=== PATIENT | female | born 1965 | race Caucasian/White ===

== ENCOUNTER 2023-01-13 07:39 | Outpatient (CLI) | payer BC | END 2023-01-13 07:40 | disposition home or self-care (01) | LOC: ULT 07:39 | PROVIDERS: ATTEND Specialist | DX: R10.9 Unspecified abdominal pain (principal); K76.0 Fatty (change of) liver, not elsewhere classified; N28.1 Cyst of kidney, acquired | CPT/HCPCS: 76700 ==

== ENCOUNTER 2023-02-20 12:57 | Outpatient (CLI) | payer BC | END 2023-02-20 12:58 | disposition home or self-care (01) | LOC: NM 12:57 | PROVIDERS: ATTEND Specialist | DX: K80.10 Calculus of gallbladder with chronic cholecystitis without obstruction (principal) | CPT/HCPCS: 78227; A9537 ==

== ENCOUNTER 2023-04-21 10:24 | Outpatient (CLI) | payer BC ==
[2023-04-21 14:21] LABS: %Lymphocytes 14.8 % (18.0-47.0); %Monocytes 5.5 % (0.0-10.0); %Neutrophils 76.5 % (40.0-75.0); Hematocrit 45.7 % (34.9-44.5); Hemoglobin 14.7 g/dL (12.0-15.5); Mean Corpuscular HGB CONC 32.2 g/dL (32.0-36.0); Mean Corpuscular Hemoglobin 30.9 pg (27.0-33.0); Mean Corpuscular Volume 96.2 fl (81.6-98.3); Platelet Count 351 10x3/uL (130-400); RBC Distribution Width 15.4 % (11.5-14.5); Red Blood Cell (RBC) Count 4.75 10x6/uL (3.90-5.03); White Blood Cell (WBC) Count 10.6 10x3/uL (3.5-10.5)
[2023-04-21 14:22] LABS: #Basophils 0.1 10x3/uL (0.0-0.2); #Eosinphils 0.2 10x3/uL (0.0-0.5); #Monocytes 0.6 10x3/uL (0.0-1.1); #Neutrophils 8.1 10x3/uL (1.5-8.4); %Basophils 0.9 % (0.0-2.0)
[2023-04-21 18:02] LABS: ALT (SGPT) 7 U/L (8-55); AST (SGOT) 20 U/L (5-34); Albumin 3.7 g/dL (3.5-5.0); Alkaline Phosphatase 117 U/L (40-110); Anion Gap 20 mmol/L (10-20); BUN (Urea Nitrogen) 8 mg/dL (9.8-20.1); Bilirubin, Direct 0.1 mg/dL (0.1-0.3); Bilirubin, Total 0.3 mg/dL (0.2-1.2); Calc. Creatinine Clearance 0 mL/min (70-130); Calcium 9.3 mg/dL (7.8-10.44); Carbon Dioxide 21 mmol/L (22-29); Chloride 104 mmol/L (98-107); Estimated GFR 71; Globulin 2.9 g/dL (2.4-3.5); Glucose 94 mg/dL (70-105); Potassium 3.5 mmol/L (3.5-5.1); Protein, Total 6.6 g/dL (6.0-8.3); Sodium 141 mmol/L (136-145)
== END 2023-04-21 10:25 | disposition home or self-care (01) ==
LOC: LABBT 10:24
PROVIDERS: ATTEND Surgery
DX: Z01.818 Encounter for other preprocedural examination (principal); K81.1 Chronic cholecystitis
CPT/HCPCS: 80053; 80076; 85025; 93005; 93010

== ENCOUNTER 2023-04-29 06:54 | Day surgery (SDC) | payer BC ==
[2023-04-21 11:00] VITALS: BMI 26.6
[2023-04-29] MEDS ORDERED: Midazolam HCl 2 mg/2 ml Vial ONE (08:34)
[2023-04-29] MEDS ORDERED: fentaNYL 50 mcg/mL 1 mL Vial ONE ×3 (09:31→12:18)
[2023-04-29] MEDS ORDERED: EPINEPHrine 1 MG/ML AMP ONE (09:36)
[2023-04-29] MEDS ORDERED: Indocyanine Green 25 MG/10 ML VIAL ONE (09:36)
[2023-04-29] MEDS ORDERED: Bupivacaine 0.25% HCL 30 ML VIAL ONE (09:36)
[2023-04-29] MEDS ORDERED: Sodium Chloride 0.9% 100 ML ONE (09:43)
[2023-04-29] MEDS ORDERED: cefOXitin 2 GM VIAL ONE (09:43)
[2023-04-29] MEDS ORDERED: Rocuronium Bromide 10 MG/ML (10ML VIAL) ONE (09:54)
[2023-04-29] MEDS ORDERED: Ondansetron PF 4 MG/2 ML Vial ONE (09:54)
[2023-04-29] MEDS ORDERED: Dexamethasone 20 MG/5 ML VIAL ONE (09:54)
[2023-04-29] MEDS ORDERED: PROPOFOL 200 MG/20 ML VIAL ONE (09:54)
[2023-04-29] MEDS ORDERED: Lidocaine 1% PF 5 ML VIAL ONE (09:54)
[2023-04-29] MEDS ORDERED: Ipratropium/Albuterol 3 ML NEB ONE (15:14)
[2023-04-29] MEDS ORDERED: HYDROcodone/Acetaminophen 5/325 mg Tablet ONE (16:12)
== END 2023-04-29 16:17 | disposition home or self-care (01) ==
LOC: SDC 06:54
PROVIDERS: ATTEND Surgery
PROC: 0FT44ZZ Resection of Gallbladder, Percutaneous Endoscopic Approach (ICD-10-PCS; principal; 2023-04-29)
DX: K81.1 Chronic cholecystitis (principal); I10 Essential (primary) hypertension; G43.909 Migraine, unspecified, not intractable, without status migrainosus; K22.70 Barrett's esophagus without dysplasia; F32.A Depression, unspecified; J44.9 Chronic obstructive pulmonary disease, unspecified; Z90.710 Acquired absence of both cervix and uterus; F17.210 Nicotine dependence, cigarettes, uncomplicated; Z88.1 Allergy status to other antibiotic agents; Z88.5 Allergy status to narcotic agent; Z91.09 Other allergy status, other than to drugs and biological substances; Z79.899 Other long term (current) drug therapy
CPT/HCPCS: 36416; 88304; J0171; J0694; J1100; J2250; J2405; J2704; J3010; J3490; J7620; S0020

== ENCOUNTER 2023-06-17 14:55 | Inpatient (IN) | payer BC ==
[2023-06-17] MEDS ORDERED: Midazolam HCl 2 mg/2 ml Vial ONE ×2 (15:34→17:03)
[2023-06-17] MEDS ORDERED: Famotidine/PF 20 mg/2ml Vial ONE (15:34)
[2023-06-17] MEDS ORDERED: Pantoprazole 40 MG VIAL ONE (15:34)
[2023-06-17 15:44] LABS: #Monocytes 0.2 thou/uL (0.11-0.59); #Neutrophils 4.5 thou/uL (1.40-6.50); %Basophils 0.4 % (0.0-1.0); %Lymphocytes 12.1 % (21.0-51.0); %Monocytes 4.1 % (0.0-10.0); %Neutrophils 82.8 % (42.0-75.0); Hematocrit 48.3 % (36.0-47.0); Hemoglobin 16.3 g/dL (12.0-16.0); Mean Corpuscular HGB CONC 33.7 g/dL (32.0-36.0); Mean Corpuscular Hemoglobin 31.2 pg (27.0-31.0); Mean Corpuscular Volume 92.5 fl (78.0-98.0); Mean Platelet Volume 10.4 fL (7.4-10.4); Platelet Count 237 10x3/uL (130-400); RBC Distribution Width 15.6 % (11.5-14.5); Red Blood Cell (RBC) Count 5.22 mill/uL (4.20-5.40); White Blood Cell (WBC) Count 5.4 10x3/uL (4.8-10.8)
[2023-06-17 16:04] LABS: ALT (SGPT) 21 U/L (8-55); AST (SGOT) 21 U/L (5-34); Albumin 4.3 g/dL (3.5-5.0); Alkaline Phosphatase 113 U/L (40-110); Anion Gap 16 mmol/L (10-20); BUN (Urea Nitrogen) 6 mg/dL (9.8-20.1); Bilirubin, Total 0.5 mg/dL (0.2-1.2); Calc. Creatinine Clearance 0 mL/min (70-130); Calcium 9.6 mg/dL (7.8-10.44); Carbon Dioxide 19 mmol/L (22-29); Chloride 106 mmol/L (98-107); Estimated GFR 76; Glucose 113 mg/dL (70-105); Magnesium 1.8 mg/dL (1.6-2.6); Protein, Total 7.3 g/dL (6.0-8.3); Sodium 138 mmol/L (136-145)
[2023-06-17 16:08] LABS: Troponin I Less than 0.010 ng/mL (< 0.028)
[2023-06-17] MEDS ORDERED: Magnesium 2 GM/50 ML BAG (IN WATER) ONE (16:50)
[2023-06-17 18:40] LABS: Bilirubin Negative (Negative); Blood, Urine Negative (Negative); CAUTI Indications for Culture Dysuria,urgency,freq; Clarity Clear (Clear); Glucose, Urine (Dipstick) 30 mg/dL (Negative); Ketone, Urine 10 mg/dL (Negative); Leukocyte Negative Leu/uL (Negative); Nitrite Negative (Negative); Protein, Urine (Dipstick) 20 mg/dL (Neg-Trace); RBC/HPF 0-3 HPF (0-3); Specific Gravity, Urine 1.013 (1.002-1.036); Squamous Epithelial 0-3 HPF (0-3); Urobilinogen Normal mg/dL (Less than 2); WBC/HPF 0-3 HPF (0-3); pH, Urine 7.5 (5.0-9.0)
[2023-06-17 18:42] LABS: Bacteria/HPF 1+ HPF (None Seen); Urine Culture Reflex No No
[2023-06-17 19:11] LABS: SARS-CoV-2 NAA Rapid Test Not Detected (NotDetected)
[2023-06-17 19:40] LABS: Lactic Acid 2.6 mmol/L (0.5-2.2)
[2023-06-17] MEDS: Metoclopramide HCl 10 MG/2 ML VIAL IVP SCH (20:23)
[2023-06-17] MEDS: Ondansetron PF 4 MG/2 ML Vial IVP SCH (20:23)
[2023-06-17] MEDS: Famotidine/PF 20 mg/2ml Vial SLOW IVP SCH (20:23)
[2023-06-17] MEDS: Lorazepam 2 MG/ML VIAL SLOW IVP SCH ×2 (20:24→23:23)
[2023-06-17] MEDS: rOPINIRole HCl 1 MG TAB PO SCH (20:25)
[2023-06-17] MEDS: Potassium Chloride 20 MEQ in Premix 1 BAG IVPB SCH (20:41)
[2023-06-17] MEDS: Sodium Chloride 0.9% 1,000 ML IV SCH (20:53)
[2023-06-17] MEDS: Acetaminophen 650 MG Suppository PR PRN (22:24)
[2023-06-17 22:25] VITALS: BMI 24.3
[2023-06-17] MEDS ORDERED: Labetalol HCl 100 MG/20 ML VIAL SLOW IVP SCH (23:00)
[2023-06-17] MEDS ORDERED: rOPINIRole HCl 1 MG TAB PO SCH (23:00)
[2023-06-17] MEDS: Labetalol HCl 100 MG/20 ML VIAL SLOW IVP PRN (23:13)
[2023-06-18] MEDS: Labetalol HCl 100 MG/20 ML VIAL SLOW IVP PRN (00:08)
[2023-06-18] MEDS: Metoclopramide HCl 10 MG/2 ML VIAL IVP SCH ×4 (00:08→20:20)
[2023-06-18] MEDS: Ondansetron PF 4 MG/2 ML Vial IVP SCH ×6 (00:10→20:30)
[2023-06-18] MEDS: Sodium Chloride 0.9% 1,000 ML IV SCH ×5 (00:20→20:15)
[2023-06-18] MEDS: Lorazepam 2 MG/ML VIAL SLOW IVP SCH ×6 (02:16→23:08)
[2023-06-18] MEDS: Potassium Chloride 20 MEQ in Premix 1 BAG IVPB SCH ×3 (03:00→20:20)
[2023-06-18] MEDS: Acetaminophen 650 MG Suppository PR PRN (06:48)
[2023-06-18 06:57] LABS: #Basophils 0.1 thou/uL (0.0-0.2); #Monocytes 0.9 thou/uL (0.11-0.59); #Neutrophils 7.2 thou/uL (1.40-6.50); %Basophils 0.5 % (0.0-1.0); %Eosinophils 0.2 % (0.0-10.0); %Lymphocytes 16.3 % (21.0-51.0); %Neutrophils 73.6 % (42.0-75.0); Hematocrit 44.9 % (36.0-47.0); Hemoglobin 14.9 g/dL (12.0-16.0); Mean Corpuscular HGB CONC 33.2 g/dL (32.0-36.0); Mean Corpuscular Volume 93.5 fl (78.0-98.0); Mean Platelet Volume 10.3 fL (7.4-10.4); Platelet Count 231 10x3/uL (130-400); RBC Distribution Width 16.1 % (11.5-14.5); White Blood Cell (WBC) Count 9.7 10x3/uL (4.8-10.8)
[2023-06-18 07:19] LABS: Anion Gap 14 mmol/L (10-20); BUN (Urea Nitrogen) Less than 4 mg/dL (9.8-20.1); Calc. Creatinine Clearance 99 mL/min (70-130); Calcium 9.4 mg/dL (7.8-10.44); Carbon Dioxide 18 mmol/L (22-29); Chloride 109 mmol/L (98-107); Estimated GFR 101; Glucose 101 mg/dL (70-105); Potassium 3.2 mmol/L (3.5-5.1); Sodium 138 mmol/L (136-145)
[2023-06-18] MEDS ORDERED: predniSONE 50 MG TAB PO SCH (07:30)
[2023-06-18] MEDS ORDERED: cloNIDine 0.1 MG TAB PO PRN (08:09)
[2023-06-18] MEDS: Famotidine/PF 20 mg/2ml Vial SLOW IVP SCH ×2 (09:05→20:15)
[2023-06-18] MEDS: rOPINIRole HCl 1 MG TAB PO SCH ×3 (09:06→20:20)
[2023-06-18] MEDS: Amlodipine 5 MG TAB PO SCH (09:07)
[2023-06-18] MEDS ORDERED: Fentanyl 100 MCG/2 ML VIAL SLOW IVP PRN (10:56)
[2023-06-18] MEDS: fentaNYL 50 mcg/mL 1 mL Vial SLOW IVP PRN ×4 (11:27→23:17)
[2023-06-18] MEDS ORDERED: FLU VACC QS2023-24(6MOS UP)/PF 60 MCG/0.5 ML SYRINGE IM ONE (12:00)
[2023-06-18] MEDS: Nicotine 21 MG PATCH TD SCH (14:18)
[2023-06-18] MEDS: predniSONE 50 MG TAB PO SCH ×2 (14:25→18:43)
[2023-06-18] MEDS ORDERED: diphenhydrAMINE 50 MG CAP PO SCH (18:00)
[2023-06-19] MEDS: Ondansetron PF 4 MG/2 ML Vial IVP SCH ×6 (00:49→21:19)
[2023-06-19] MEDS: Metoclopramide HCl 10 MG/2 ML VIAL IVP SCH ×4 (00:54→18:11)
[2023-06-19] MEDS: Sodium Chloride 0.9% 1,000 ML IV SCH ×3 (00:55→21:19)
[2023-06-19] MEDS: fentaNYL 50 mcg/mL 1 mL Vial SLOW IVP PRN ×4 (01:46→12:40)
[2023-06-19] MEDS: Lorazepam 2 MG/ML VIAL SLOW IVP SCH ×3 (03:51→11:13)
[2023-06-19] MEDS: Potassium Chloride 20 MEQ in Premix 1 BAG IVPB SCH ×3 (04:02→20:27)
[2023-06-19 05:36] LABS: #Monocytes 0.6 thou/uL (0.11-0.59); %Basophils 0.1 % (0.0-1.0); %Lymphocytes 14.7 % (21.0-51.0); %Monocytes 7.9 % (0.0-10.0); %Neutrophils 76.8 % (42.0-75.0); Hematocrit 44.8 % (36.0-47.0); Hemoglobin 14.7 g/dL (12.0-16.0); Mean Corpuscular HGB CONC 32.8 g/dL (32.0-36.0); Mean Corpuscular Hemoglobin 30.8 pg (27.0-31.0); Mean Corpuscular Volume 93.7 fl (78.0-98.0); Mean Platelet Volume 10.2 fL (7.4-10.4); Platelet Count 225 10x3/uL (130-400); RBC Distribution Width 16.2 % (11.5-14.5); Red Blood Cell (RBC) Count 4.78 mill/uL (4.20-5.40); White Blood Cell (WBC) Count 7.8 10x3/uL (4.8-10.8)
[2023-06-19 06:05] LABS: Anion Gap 14 mmol/L (10-20); BUN (Urea Nitrogen) 6 mg/dL (9.8-20.1); Calc. Creatinine Clearance 85 mL/min (70-130); Calcium 9.7 mg/dL (7.8-10.44); Carbon Dioxide 21 mmol/L (22-29); Chloride 108 mmol/L (98-107); Estimated GFR 85; Glucose 117 mg/dL (70-105); Potassium 3.5 mmol/L (3.5-5.1); Sodium 139 mmol/L (136-145)
[2023-06-19] MEDS: Famotidine/PF 20 mg/2ml Vial SLOW IVP SCH (09:29)
[2023-06-19] MEDS: rOPINIRole HCl 1 MG TAB PO SCH ×3 (10:48→20:28)
[2023-06-19] MEDS: Amlodipine 5 MG TAB PO SCH (10:50)
[2023-06-19] MEDS: Nicotine 21 MG PATCH TD SCH (10:51)
[2023-06-19] MEDS ORDERED: Ketorolac Tromethamine 30 MG/ML VIAL IVP PRN (12:35)
[2023-06-19] MEDS: cloNIDine 0.1 MG TAB PO SCH (20:28)
[2023-06-19] MEDS: Ketorolac Tromethamine 30 MG/ML VIAL IVP PRN (21:18)
[2023-06-19] MEDS: Pantoprazole 40 MG VIAL IVP SCH (21:19)
[2023-06-20] MEDS: Metoclopramide HCl 10 MG/2 ML VIAL IVP SCH ×5 (00:03→23:40)
[2023-06-20] MEDS: fentaNYL 50 mcg/mL 1 mL Vial SLOW IVP PRN ×5 (00:03→23:40)
[2023-06-20] MEDS: Ondansetron PF 4 MG/2 ML Vial IVP SCH ×7 (00:04→23:40)
[2023-06-20] MEDS: Ketorolac Tromethamine 30 MG/ML VIAL IVP PRN ×3 (03:54→18:44)
[2023-06-20] MEDS: Potassium Chloride 20 MEQ in Premix 1 BAG IVPB SCH ×3 (04:04→18:44)
[2023-06-20] MEDS: Sodium Chloride 0.9% 1,000 ML IV SCH ×2 (06:01→15:54)
[2023-06-20 06:31] LABS: #Eosinphils 0.1 thou/uL (0.0-0.7); #Monocytes 0.7 thou/uL (0.11-0.59); #Neutrophils 3.9 thou/uL (1.40-6.50); %Basophils 0.4 % (0.0-1.0); %Eosinophils 0.9 % (0.0-10.0); %Neutrophils 50.4 % (42.0-75.0); Hematocrit 45.6 % (36.0-47.0); Mean Corpuscular HGB CONC 32.9 g/dL (32.0-36.0); Mean Corpuscular Hemoglobin 31.4 pg (27.0-31.0); Mean Corpuscular Volume 95.4 fl (78.0-98.0); Mean Platelet Volume 10.1 fL (7.4-10.4); Platelet Count 186 10x3/uL (130-400); RBC Distribution Width 16.2 % (11.5-14.5); Red Blood Cell (RBC) Count 4.78 mill/uL (4.20-5.40); White Blood Cell (WBC) Count 7.8 10x3/uL (4.8-10.8)
[2023-06-20 07:33] LABS: Anion Gap 11 mmol/L (10-20); BUN (Urea Nitrogen) 5 mg/dL (9.8-20.1); Calc. Creatinine Clearance 91 mL/min (70-130); Calcium 9.2 mg/dL (7.8-10.44); Carbon Dioxide 25 mmol/L (22-29); Chloride 105 mmol/L (98-107); Estimated GFR 91; Glucose 69 mg/dL (70-105); Potassium 3.3 mmol/L (3.5-5.1); Sodium 138 mmol/L (136-145)
[2023-06-20] MEDS: rOPINIRole HCl 1 MG TAB PO SCH ×3 (08:32→20:18)
[2023-06-20] MEDS: Nicotine 21 MG PATCH TD SCH (08:32)
[2023-06-20] MEDS: Amlodipine 5 MG TAB PO SCH (08:32)
[2023-06-20] MEDS: cloNIDine 0.1 MG TAB PO SCH ×2 (08:32→20:18)
[2023-06-20] MEDS: Pantoprazole 40 MG VIAL IVP SCH ×2 (08:33→20:19)
[2023-06-20] MEDS: Polyethylene Glycol 3350 17 GM Packet PO SCH (20:39)
[2023-06-21] MEDS: Ketorolac Tromethamine 30 MG/ML VIAL IVP PRN ×4 (02:12→20:41)
[2023-06-21] MEDS: Potassium Chloride 20 MEQ in Premix 1 BAG IVPB SCH ×2 (02:34→11:28)
[2023-06-21] MEDS: Sodium Chloride 0.9% 1,000 ML IV SCH ×3 (05:39→22:22)
[2023-06-21] MEDS: Metoclopramide HCl 10 MG/2 ML VIAL IVP SCH ×3 (05:39→18:25)
[2023-06-21] MEDS: Ondansetron PF 4 MG/2 ML Vial IVP SCH ×5 (05:39→20:42)
[2023-06-21] MEDS: Amlodipine 5 MG TAB PO SCH (08:13)
[2023-06-21] MEDS: Polyethylene Glycol 3350 17 GM Packet PO SCH ×2 (08:13→20:40)
[2023-06-21] MEDS: Pantoprazole 40 MG VIAL IVP SCH ×2 (08:13→20:40)
[2023-06-21] MEDS: Nicotine 21 MG PATCH TD SCH (08:13)
[2023-06-21] MEDS: cloNIDine 0.1 MG TAB PO SCH ×2 (08:14→20:39)
[2023-06-21] MEDS: rOPINIRole HCl 1 MG TAB PO SCH ×3 (08:14→20:40)
[2023-06-21 08:37] LABS: Anion Gap 14 mmol/L (10-20); BUN (Urea Nitrogen) 4 mg/dL (9.8-20.1); Calc. Creatinine Clearance 86 mL/min (70-130); Calcium 8.7 mg/dL (7.8-10.44); Carbon Dioxide 23 mmol/L (22-29); Chloride 105 mmol/L (98-107); Estimated GFR 86; Glucose 82 mg/dL (70-105); Potassium 3.6 mmol/L (3.5-5.1); Sodium 138 mmol/L (136-145)
[2023-06-21] MEDS: fentaNYL 50 mcg/mL 1 mL Vial SLOW IVP PRN (11:29)
[2023-06-21] MEDS ORDERED: Magnesium Citrate 300 ML BOT PO SCH (13:15)
[2023-06-21] MEDS: Potassium Chloride 20 MEQ TAB PO SCH (16:30)
[2023-06-21] MEDS: Acetaminophen 325 MG TAB PO SCH (16:32)
[2023-06-21] MEDS: Topiramate 25 MG TAB PO SCH (20:38)
[2023-06-22] MEDS: Acetaminophen 325 MG TAB PO SCH ×2 (00:10→06:13)
[2023-06-22] MEDS: Metoclopramide HCl 10 MG/2 ML VIAL IVP SCH ×2 (00:11→06:14)
[2023-06-22] MEDS: Ondansetron PF 4 MG/2 ML Vial IVP SCH ×3 (01:51→09:22)
[2023-06-22] MEDS: Ketorolac Tromethamine 30 MG/ML VIAL IVP PRN (06:14)
[2023-06-22 09:02] VITALS: BP 119/79; TEMP 98.1
[2023-06-22] MEDS: Potassium Chloride 20 MEQ TAB PO SCH (09:35)
[2023-06-22] MEDS: cloNIDine 0.1 MG TAB PO SCH (09:35)
[2023-06-22] MEDS: Polyethylene Glycol 3350 17 GM Packet PO SCH (09:36)
[2023-06-22] MEDS: rOPINIRole HCl 1 MG TAB PO SCH (09:37)
[2023-06-22] MEDS: Topiramate 25 MG TAB PO SCH (09:37)
[2023-06-22] MEDS: Pantoprazole 40 MG VIAL IVP SCH (09:37)
[2023-06-22] MEDS: Amlodipine 5 MG TAB PO SCH (09:37)
[2023-06-22] MEDS: Nicotine 21 MG PATCH TD SCH (09:37)
[2023-06-22] MEDS: Sodium Chloride 0.9% 1,000 ML IV SCH (09:38)
[2023-06-24 22:36] LABS: Adenovirus F 40-41 Not Detected (Not Detected); Astrovirus Not Detected (Not Detected); C. difficile toxin A+B Not Detected (Not Detected); Campylobacter by PCR Not Detected (Not Detected); Cryptosporidium Not Detected (Not Detected); Cyclospora cayetanensis Not Detected (Not Detected); Entamoeba histolytica Not Detected (Not Detected); Enteroaggregative E. coli Not Detected (Not Detected); Enteropathogenic E. coli Not Detected (Not Detected); Enterotoxigenic E. coli Not Detected (Not Detected); Giardia lamblia Not Detected (Not Detected); Norovirus GI-GII Not Detected (Not Detected); Plesiomonas shigelloides Not Detected (Not Detected); Rotavirus A Not Detected (Not Detected); Salmonella Not Detected (Not Detected); Sapovirus Not Detected (Not Detected); Shiga-toxin-producing E coli Not Detected (Not Detected); Shigella/Enteroinvasive E coli Not Detected (Not Detected); Vibrio Not Detected (Not Detected); Vibrio cholerae Not Detected (Not Detected); Yersinia enterocolitica Not Detected (Not Detected)
== END 2023-06-22 11:19 | disposition home or self-care (01) | DRG 392 ==
LOC: ERS 14:55 → T4-A 17:12 → OBSVTOIN 06-19 12:10
PROVIDERS: ADMIT Specialist; ATTEND Specialist
DX: K29.60 Other gastritis without bleeding (principal); R11.2 Nausea with vomiting, unspecified; G62.9 Polyneuropathy, unspecified; E11.40 Type 2 diabetes mellitus with diabetic neuropathy, unspecified; J44.9 Chronic obstructive pulmonary disease, unspecified; F41.1 Generalized anxiety disorder; F32.A Depression, unspecified; E78.5 Hyperlipidemia, unspecified; F17.210 Nicotine dependence, cigarettes, uncomplicated; G47.00 Insomnia, unspecified; K29.70 Gastritis, unspecified, without bleeding; E86.0 Dehydration; E87.6 Hypokalemia; K22.70 Barrett's esophagus without dysplasia; K59.09 Other constipation; Z88.8 Allergy status to other drugs, medicaments and biological substances; Z91.041 Radiographic dye allergy status; Z98.890 Other specified postprocedural states; Z90.49 Acquired absence of other specified parts of digestive tract; Z79.899 Other long term (current) drug therapy; Z79.51 Long term (current) use of inhaled steroids; Z20.822 Contact with and (suspected) exposure to COVID-19
CPT/HCPCS: 36415; 36416; 71045; 71260; 74176; 80048; 80053; 81001; 83036; 83605; 83735; 84484; 85025; 87040; 87086; 87338; 87507; 93005; 95816; 95819; 96361; 96365; 96367; 96372; 96375; 96376; C9113; G0378; J1650; J1885; J2060; J2250; J2405; J2765; J3010; J3475; J3480; J7030; J7050; J7512; S0028